=== PATIENT | female | born 1980 | race Caucasian/White ===

== ENCOUNTER 2017-03-25 13:02 | Inpatient (IN) | payer BC ==
[2017-03-25 15:37] VITALS: BMI 31.3
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
[2017-03-25] MEDS ORDERED: MAGNESIUM HYDROX 2400MG/30ML ORAL SUSPENSION 30 ML CUP PO PRN (17:19)
[2017-03-25] MEDS ORDERED: MAG HYDROX/AL HYDROX/SIMETH 30 ML UNIT-DOSE CUP PO PRN (17:19)
[2017-03-25] MEDS ORDERED: LOPERAMIDE HCL 2 MG CAPSULE PO PRN (17:19)
[2017-03-25] MEDS ORDERED: MENTHOL/PHENOL 1 EACH UD MM PRN (17:19)
[2017-03-25] MEDS ORDERED: MAGNESIUM CITRATE 300 ML BOTTLE PO PRN (17:19)
[2017-03-25] MEDS ORDERED: guaiFENesin/D-METHORPHAN HB 10 ML UNIT-DOSE CUPS PO PRN (17:19)
[2017-03-25] MEDS ORDERED: P-EPHED 60MG/TRIPROLIDI 2.5MG TABLET PO PRN (17:19)
[2017-03-25] MEDS ORDERED: ALBUTEROL SO4 6.7 GM HFA INHALER IH PRN (17:22)
[2017-03-25] MEDS ORDERED: diazePAM 5 MG TABLET PO ONE (18:00)
[2017-03-25] MEDS: PENICILLIN V POTASSIUM 500 MG TABLET PO SCH ×2 (19:04→23:25)
[2017-03-25] MEDS: CYCLOBENZAPRINE HCL 10 MG TABLET (FP) PO PRN (19:12)
[2017-03-25] MEDS: IBUPROFEN 400 MG TABLET (FP) PO PRN (19:12)
[2017-03-25] MEDS: cloNIDine HCL 0.1 MG TABLET PO SCH (22:16)
[2017-03-25] MEDS: THIAMINE HCL 100 MG TABLET (FP) PO SCH (22:16)
[2017-03-25] MEDS: diazePAM 5 MG TABLET PO SCH (22:16)
[2017-03-25 23:01] LABS: URINE APPEARANCE CLEAR; URINE BLOOD NEGATIVE (NEGATIVE); URINE COLOR YELLOW; URINE GLUCOSE (UA) NEGATIVE (NEGATIVE); URINE KETONE NEGATIVE (NEGATIVE); URINE LEUK ESTERASE NEGATIVE (NEGATIVE); URINE NITRITE NEGATIVE (NEGATIVE); URINE PROTEIN NEGATIVE (NEGATIVE); URINE UROBILINOGEN 4.0 E.U/dl E.U./dl (0.2-1.0)
[2017-03-26] MEDS: diazePAM 5 MG TABLET PO PRN ×3 (03:10→15:04)
[2017-03-26] MEDS: IBUPROFEN 400 MG TABLET (FP) PO PRN ×3 (03:10→21:03)
[2017-03-26] MEDS: ACETAMINOPHEN 325 MG TABLET (FP) PO PRN (04:32)
[2017-03-26] MEDS: CYCLOBENZAPRINE HCL 10 MG TABLET (FP) PO PRN ×2 (04:32→13:10)
[2017-03-26] MEDS: diazePAM 5 MG TABLET PO SCH ×3 (06:37→21:02)
[2017-03-26] MEDS: PENICILLIN V POTASSIUM 500 MG TABLET PO SCH ×3 (06:37→17:55)
[2017-03-26] MEDS: METHADONE HCL 10 MG TABLET PO SCH (07:49)
--- NOTE | 2017-03-26 09:12 | PN ---
S CIWA - CIWA Score Nausea/Vomitin Muscle Tremors: 3 Anxiety: 3 Agitation: 2 Paroxysmal Sweats: 1-Minimal Palms Moist Orientation: 0-Oriented Tacttile Disturbances: 1-Very Mild Itch/Numbness Auditory Disturbances: 1-Very Mild Visual Disturbances: 1-Very Mild Sensitivity Headache: 2-Mild CIWA-Ar Total Score: 17 BHS Progress Note (SOAP) Subjective: ALERT,IRRITABLE,ANXIOUS,INTERRUPTED SLEEP,TREMOR,PAIN IN THE BODY AND BACK Objective: 03/26/17 09:10 Vital Signs Temperature 98.2 F 03/26/17 06:48 Pulse Rate 74 03/26/17 06:48 Respiratory Rate 16 03/26/17 06:48 Blood Pressure 141/63 03/26/17 06:48 O2 Sat by Pulse Oximetry (%) EKG NSR,NORMAL ECG 03/26/17 09:11 Laboratory Last Values Urine Color Yellow 03/25/17 23:00 Urine Appearance Clear 03/25/17 23:00 Urine pH 5.0 (5.0-8.0) 03/25/17 23:00 Urine Protein Negative (NEGATIVE) 03/25/17 23:00 Urine Glucose (UA) Negative (NEGATIVE) 03/25/17 23:00 Urine Ketones Negative (NEGATIVE) 03/25/17 23:00 Urine Blood Negative (NEGATIVE) 03/25/17 23:00 Urine Nitrite Negative (NEGATIVE) 03/25/17 23:00 Urine Bilirubin 2.0 (NEGATIVE) 03/25/17 23:00 Urine Urobilinogen 4.0 e.u/dl E.U./dl (0.2-1.0) H 03/25/17 23:00 Ur Leukocyte Esterase Negative (NEGATIVE) 03/25/17 23:00 LABS PENDING Assessment: 03/26/17 09:11 WITHDRAWAL SYMPTOM Plan: CONTINUE DETOX
[2017-03-26 09:49] LABS: MCH 28.6 pg (25.7-33.7); MCHC 33.2 g/dl (32.0-36.0); MEAN CELL VOLUME 86.2 fl (80-96); MEAN PLT VOLUME 9.1 fl (7.5-11.1); PLATELET COUNT 155 K/MM3 (134-434); RDW 14.2 % (11.6-15.6); WHITE BLOOD COUNT 5.2 K/mm3 (4.0-10.0)
[2017-03-26] MEDS: PRENATAL VITAMINS W/ FOLIC ACID TABLET (FP) PO SCH (10:13)
[2017-03-26] MEDS: cloNIDine HCL 0.1 MG TABLET PO SCH ×2 (10:13→22:39)
[2017-03-26 10:31] LABS: ALBUMIN 3.2 g/dl (3.4-5.0); ALK PHOS 46 U/L (45-117); ANION GAP 9 (8-16); BILIRUBIN,TOTAL 0.4 mg/dL (0.2-1.0); CALCIUM 8.4 mg/dL (8.5-10.1); CO2 24 mmol/L (21-32); COCKROFT - GAULT 123.7515; CREATININE 0.9 mg/dL (0.55-1.02); GLUCOSE,RANDOM 103 mg/dL (74-106); SGOT/AST 17 U/L (15-37); SGPT/ALT 19 U/L (12-78); TOT PROT 6.3 g/dl (6.4-8.2)
[2017-03-26 11:53] LABS: HIV 1 & 2 AB NEGATIVE; HIV 1 AGp24 NEGATIVE
--- NOTE | 2017-03-26 12:50 | EKG ---
Test Reason : Blood Pressure : / mmHG Vent. Rate : 063 BPM Atrial Rate : 063 BPM P-R Int : 136 ms QRS Dur : 088 ms QT Int : 364 ms P-R-T Axes : 064 040 004 degrees QTc Int : 372 ms NORMAL SINUS RHYTHM NORMAL ECG NO PREVIOUS ECGS AVAILABLE Confirmed by GABRIEL CARBALLO MD ([id number]) on 03/26/2017 12:49:58 PM Referred By: Confirmed By:GABRIEL CARBALLO MD
[2017-03-26] MEDS: THIAMINE HCL 100 MG TABLET (FP) PO SCH (22:39)
[2017-03-26] MEDS: diphenhydrAMINE HCL 50 MG CAPSULE PO PRN (22:39)
[2017-03-27] MEDS: PENICILLIN V POTASSIUM 500 MG TABLET PO SCH ×5 (00:45→23:04)
[2017-03-27] MEDS: diazePAM 5 MG TABLET PO PRN ×3 (03:31→14:55)
[2017-03-27] MEDS: CYCLOBENZAPRINE HCL 10 MG TABLET (FP) PO PRN ×2 (03:36→11:10)
[2017-03-27] MEDS: IBUPROFEN 400 MG TABLET (FP) PO PRN ×3 (03:36→17:38)
[2017-03-27] MEDS: hydrOXYzine PAMOATE 50 MG CAPSULE (FP) PO PRN ×2 (06:09→17:38)
[2017-03-27] MEDS: METHADONE HCL 10 MG TABLET PO SCH (06:09)
[2017-03-27] MEDS: ACETAMINOPHEN 325 MG TABLET (FP) PO PRN ×3 (08:35→22:11)
[2017-03-27] MEDS: LIDOCAINE VISCOUS 2% ORAL/TOP 20 ML UNIT-DOSE CUP MM PRN ×2 (08:35→15:21)
--- NOTE | 2017-03-27 09:54 | PN ---
[facility] CIWA - CIWA Score Nausea/Vomitin Muscle Tremors: 3 Anxiety: 3 Agitation: 2 Paroxysmal Sweats: 1-Minimal Palms Moist Orientation: 0-Oriented Tacttile Disturbances: 1-Very Mild Itch/Numbness Auditory Disturbances: 1-Very Mild Visual Disturbances: 1-Very Mild Sensitivity Headache: 2-Mild CIWA-Ar Total Score: 17 S Progress Note (SOAP) Subjective: ALERT,IRRITABLE,ANXIOUS,INTERRUPTED SLEEP,PAIN IN THE BODY AND BACK Objective: 03/27/17 09:53 Vital Signs Temperature 98.2 F 03/27/17 06:00 Pulse Rate 86 03/27/17 06:00 Respiratory Rate 18 03/27/17 06:00 Blood Pressure 125/66 03/27/17 06:00 O2 Sat by Pulse Oximetry (%) Laboratory Last Values WBC 5.2 K/mm3 (4.0-10.0) 03/26/17 07:00 RBC 4.09 M/mm3 (3.60-5.2) 03/26/17 07:00 Hgb 11.7 GM/dL (10.7-15.3) 03/26/17 07:00 Hct 35.2 % (32.4-45.2) 03/26/17 07:00 MCV 86.2 fl (80-96) 03/26/17 07:00 MCHC 33.2 g/dl (32.0-36.0) 03/26/17 07:00 RDW 14.2 % (11.6-15.6) 03/26/17 07:00 Plt Count 155 K/MM3 (134-434) 03/26/17 07:00 MPV 9.1 fl (7.5-11.1) 03/26/17 07:00 Sodium 141 mmol/L (136-145) 03/26/17 07:00 Potassium 3.9 mmol/L (3.5-5.1) 03/26/17 07:00 Chloride 108 mmol/L (98-107) H 03/26/17 07:00 Carbon Dioxide 24 mmol/L (21-32) 03/26/17 07:00 Anion Gap 9 (8-16) 03/26/17 07:00 BUN 16 mg/dL (7-18) 03/26/17 07:00 Creatinine 0.9 mg/dL (0.55-1.02) 03/26/17 07:00 Creat Clearance w eGFR > 60 (>60) 03/26/17 07:00 Random Glucose 103 mg/dL (74-106) 03/26/17 07:00 Calcium 8.4 mg/dL (8.5-10.1) L 03/26/17 07:00 Total Bilirubin 0.4 mg/dL (0.2-1.0) 03/26/17 07:00 AST 17 U/L (15-37) 03/26/17 07:00 ALT 19 U/L (12-78) 03/26/17 07:00 Alkaline Phosphatase 46 U/L (45-117) 03/26/17 07:00 Total Protein 6.3 g/dl (6.4-8.2) L 03/26/17 07:00 Albumin 3.2 g/dl (3.4-5.0) L 03/26/17 07:00 Urine Color Yellow 03/25/17 23:00 Urine Appearance Clear 03/25/17 23:00 Urine pH 5.0 (5.0-8.0) 03/25/17 23:00 Ur Specific [place] 1.015 (1.005-1.025) 03/25/17 23:00 Urine Protein Negative (NEGATIVE) 03/25/17 23:00 Urine Glucose (UA) Negative (NEGATIVE) 03/25/17 23:00 Urine Ketones Negative (NEGATIVE) 03/25/17 23:00 Urine Blood Negative (NEGATIVE) 03/25/17 23:00 Urine Nitrite Negative (NEGATIVE) 03/25/17 23:00 Urine Bilirubin 2.0 (NEGATIVE) 03/25/17 23:00 Urine Urobilinogen 4.0 e.u/dl E.U./dl (0.2-1.0) H 03/25/17 23:00 Ur Leukocyte Esterase Negative (NEGATIVE) 03/25/17 23:00 RPR Titer Nonreactive (NONREACTIVE) 03/26/17 07:00 HIV 1&2 Antibody Screen Negative 03/26/17 07:00 HIV P24 Antigen Negative 03/26/17 07:00 Assessment: 03/27/17 09:54 WITHDRAWAL SYMPTOM Plan: CONTINUE DETOX
[2017-03-27] MEDS: PRENATAL VITAMINS W/ FOLIC ACID TABLET (FP) PO SCH (11:10)
[2017-03-27] MEDS: diazePAM 5 MG TABLET PO SCH ×2 (11:10→22:09)
[2017-03-27] MEDS: cloNIDine HCL 0.1 MG TABLET PO SCH ×2 (11:11→22:09)
[2017-03-27] MEDS: THIAMINE HCL 100 MG TABLET (FP) PO SCH (22:09)
[2017-03-27] MEDS: diphenhydrAMINE HCL 50 MG CAPSULE PO PRN (22:10)
[2017-03-28] MEDS: diazePAM 5 MG TABLET PO PRN ×3 (05:05→13:11)
[2017-03-28] MEDS: METHADONE HCL 10 MG TABLET PO SCH (05:05)
[2017-03-28] MEDS: CYCLOBENZAPRINE HCL 10 MG TABLET (FP) PO PRN (05:05)
[2017-03-28] MEDS: PENICILLIN V POTASSIUM 500 MG TABLET PO SCH ×2 (05:05→12:00)
[2017-03-28] MEDS: IBUPROFEN 400 MG TABLET (FP) PO PRN (05:07)
[2017-03-28] MEDS ORDERED: IBUPROFEN 600 MG TABLET (FP) PO ONE (08:35)
[2017-03-28] MEDS ORDERED: IBUPROFEN 600 MG TABLET (FP) PO PRN (08:37)
[2017-03-28] MEDS: hydrOXYzine PAMOATE 50 MG CAPSULE (FP) PO PRN (08:40)
[2017-03-28] MEDS: PRENATAL VITAMINS W/ FOLIC ACID TABLET (FP) PO SCH (10:16)
[2017-03-28] MEDS: cloNIDine HCL 0.1 MG TABLET PO SCH (10:16)
--- NOTE | 2017-03-28 10:52 | PN ---
BHS Progress Note (SOAP) Subjective: ALERT,IRRITABLE.ANXIOUS,INTERRUPTED SLEEP,PAIN IN THE TOOTH,AND BACK Objective: 03/28/17 10:51 Vital Signs Temperature 98.2 F 03/28/17 10:19 Pulse Rate 75 03/28/17 10:19 Respiratory Rate 20 03/28/17 10:19 Blood Pressure 113/59 03/28/17 10:19 O2 Sat by Pulse Oximetry (%) 03/28/17 10:51 Assessment: 03/28/17 10:51 WITHDRAWAL SYMPTOM Plan: CONTINUE DETOX,DISCHARGE AT 0700AM ON 03/29/17
[2017-03-28] MEDS: diazePAM 5 MG TABLET PO SCH (11:30)
[2017-03-28 14:13] VITALS: BP 105/55; PULSE 85; TEMP 98.6
--- NOTE | 2017-03-28 18:47 | PN ---
BHS Progress Note Note: patient is stable to be discharge,follow up with after care program as arrangement
--- NOTE | 2017-03-28 18:50 | DS ---
[facility] Detox Discharge Summary Admission Date: 03/25/17 Discharge Date: 03/28/17 - History Present History: Opioid Dependence, Sedative Dependence, MMTP Additional Comments: follow up with after care program as arrangement Pertinent Past History: asthma mmtp dental cavity - Physical Exam Results Vital Signs: Vital Signs Temperature 98.6 F 03/28/17 14:12 Pulse Rate 85 03/28/17 14:12 Respiratory Rate 18 03/28/17 14:12 Blood Pressure 105/55 03/28/17 14:12 O2 Sat by Pulse Oximetry (%) Pertinent Admission Physical Exam Findings: withdrawal symptom - Treatment Hospital Course: Detox Protocol Followed, Detoxed Safely, Responded well, Discharged Condition Good Patient has Accepted a Rehab Referral to: declined - Medication Discharge Medications: Ambulatory Orders Albuterol Sulfate Inhaler - [Ventolin Hfa Inhaler -] 2 inh PO Q4H PRN 03/25/17 Albuterol Sulfate Inhaler - [Ventolin HFA Inhaler -] 2 puff IH Q4H PRN #1 inhaler 03/28/17 Ibuprofen [Motrin -] 600 mg PO Q6H PRN #20 tablet 03/28/17 Penicillin V Potassium [Pen Vee K -] 500 mg PO Q6HPO #20 tablet 03/28/17 - Diagnosis (1) Uncomplicated sedative, hypnotic or anxiolytic withdrawal Status: Acute (2) Methadone maintenance therapy patient Status: Acute (3) Opioid dependence Status: Acute (4) Nicotine dependence Status: Acute (5) Asthma Status: Acute (6) Dental cavity Status: Acute - AMA Did Patient Leave Against Medical Advice: No
[2017-03-29] MEDS ORDERED: diazePAM 5 MG TABLET PO SCH (10:00)
== END 2017-03-28 16:50 | disposition home or self-care (01) | DRG 773 ==
LOC: YASAS 13:02 → Y6N 17:23
PROVIDERS: ADMIT Internal Medicine Addiction Medicine; ATTEND Internal Medicine Addiction Medicine
PROC: HZ2ZZZZ Detoxification Services for Substance Abuse Treatment (ICD-10-PCS; principal; 2017-03-28)
DX: F11.20 Opioid dependence, uncomplicated (principal); F13.230 Sedative, hypnotic or anxiolytic dependence with withdrawal, uncomplicated; F14.20 Cocaine dependence, uncomplicated; F17.210 Nicotine dependence, cigarettes, uncomplicated; J45.20 Mild intermittent asthma, uncomplicated; K02.9 Dental caries, unspecified
CPT/HCPCS: 36415; 80053; 81003; 85027; 86593; 87389; 93005; 93010